=== PATIENT | male | born 1950 | race Caucasian/White ===

== ENCOUNTER 2020-06-14 16:24 | Emergency (ER) | payer OTHER, MEDICARE ==
[~2020-06-14] VITALS: Ht 172.7 cm; Wt 90.7 kg
[2020-06-14 16:32] VITALS: BP_SYST 162
[2020-06-14] MEDS ORDERED: NS 500 ML IV ONE (17:15)
[2020-06-14 17:56] LABS: BASOPHILS # (AUTO) 0.1 K/uL (0.0-0.2); EOSINOPHILS # (AUTO) 0.2 K/uL (0.0-0.4); EOSINOPHILS % (AUTO) 2.6 % (0.0-4.0); HEMATOCRIT 37.5 % (36-54); HEMOGLOBIN 12.8 g/dL (14.0-18.0); LYMPHOCYTES # (AUTO) 1.1 K/uL (1.0-5.5); LYMPHOCYTES % (AUTO) 18.4 % (20.5-51.5); MEAN CORPUSCULAR HEMOGLOBIN 28 pg (27-31); MEAN CORPUSCULAR HGB CONC 34 % (32-36); MEAN CORPUSCULAR VOLUME 84 fL (79.0-98.0); MONOCYTES # (AUTO) 0.5 K/uL (0.0-1.0); PLATELET COUNT (AUTO) 212 K/uL (130-430); RED BLOOD CELL COUNT(AUTO) 4.49 MIL/uL (4.2-6.2); WHITE BLOOD COUNT (AUTO) 5.9 K/uL (4.8-10.8)
[2020-06-14 18:00] LABS: ANION GAP 7 (5-15); CALCIUM 8.6 mg/dL (8.4-11.0); CHLORIDE 108 mmol/L (98-107); GLUCOSE 112 mg/dL (70-99); POTASSIUM 3.5 mmol/L (3.5-5.1); SODIUM SERUM 142 mmol/L (136-145); UREA NITROGEN, BLOOD 24 mg/dL (8-21)
[2020-06-14 18:04] LABS: ALANINE AMINOTRANSFERASE 27 U/L (12-78); ALBUMIN 3.6 g/dL (3.4-4.8); ASPARTATE AMINOTRANSFERASE 16 U/L (10-37); TOTAL BILIRUBIN 0.5 mg/dL (0.0-1.0)
[2020-06-14] MEDS ORDERED: VANCOMYCIN HCL 1,000 MG in NS 250 ML IV ONE (19:00)
[2020-06-14] MEDS ORDERED: VANCOMYCIN HCL 1000 MG/VIAL IV ONE (19:31)
[2020-06-14 21:30] VITALS: BP_SYST 142
== END 2020-06-14 21:30 | disposition home or self-care (01) ==
LOC: SED 16:24
DX: L03.116 Cellulitis of left lower limb (principal); E11.9 Type 2 diabetes mellitus without complications
CPT/HCPCS: 36415; 73630; 80053; 83605; 85025; 87040; 96361; 96365; 96366; 99284; J3370; J7030

== ENCOUNTER 2020-06-16 08:34 | Emergency (ER) | payer OTHER, MEDICARE ==
[~2020-06-16] VITALS: Ht 167.6 cm; Wt 96.2 kg
[2020-06-16 08:34] VITALS: BP_SYST 143
[2020-06-16 08:54] VITALS: BP_SYST 143
== END 2020-06-16 08:54 | disposition home or self-care (01) ==
LOC: SED 08:34
DX: Z48.00 Encounter for change or removal of nonsurgical wound dressing (principal); E11.9 Type 2 diabetes mellitus without complications
CPT/HCPCS: 99283

== ENCOUNTER 2021-11-30 20:18 | Emergency (ER) | payer OTHER, MEDICARE ==
[~2021-11-30] VITALS: Ht 172.7 cm; Wt 95.3 kg
[2021-11-30 20:27] VITALS: BP_SYST 126
[2021-11-30] MEDS: BACITRACIN 1 GM OINT TP ONE (21:33)
[2021-11-30] MEDS: DIPH-TET-PERTUS Vaccine 0.5 ML VIAL (ADACEL) I.M. ONE (21:36)
[2021-11-30 22:20] VITALS: BP_SYST 126
== END 2021-11-30 22:20 | disposition home or self-care (01) ==
LOC: SED 20:18
DX: S61.217A Laceration without foreign body of left little finger without damage to nail, initial encounter (principal); E11.9 Type 2 diabetes mellitus without complications; I10 Essential (primary) hypertension; Z90.89 Acquired absence of other organs; W18.39XA Other fall on same level, initial encounter; Y93.89 Activity, other specified; Y92.480 Sidewalk as the place of occurrence of the external cause; Y99.8 Other external cause status
CPT/HCPCS: 90715; 99283

== ENCOUNTER → 2023-11-04 | Emergency (ER) | payer OTHER, MEDICARE ==
[~2023-11-04] VITALS: Ht 172.7 cm; Wt 90.7 kg
[~2023-11-04] MED LIST: DOCU-144 PO; LIDO1ADH91 ID
[2023-11-04 14:22] VITALS: BP_SYST 175; PULSE 66; RESP 18; TEMP 96.6; O2SAT 97
== END | disposition home or self-care (01) ==
LOC: SED 12:46
DX: M54.50 Low back pain, unspecified (principal); K59.00 Constipation, unspecified; E11.9 Type 2 diabetes mellitus without complications; I10 Essential (primary) hypertension; Z79.899 Other long term (current) drug therapy
CPT/HCPCS: 99282

== ENCOUNTER 2023-11-14 09:33 | Inpatient (IN) | payer OTHER, MEDICARE ==
[~2023-11-14] VITALS: Ht 172.7 cm; Wt 90.7 kg
[2023-11-14 09:41] VITALS: BP_SYST 130; PULSE 68; RESP 16; TEMP 97.8; O2SAT 98
[2023-11-14 10:32] LABS: BASOPHILS % (AUTO) 0.3 % (0.0-2.0); EOSINOPHILS # (AUTO) 0.1 K/uL (0.0-0.4); EOSINOPHILS % (AUTO) 0.6 % (0.0-4.0); HEMATOCRIT 34.8 % (36-54); HEMOGLOBIN 11.7 g/dL (14.0-18.0); LYMPHOCYTES # (AUTO) 0.6 K/uL (1.0-5.5); LYMPHOCYTES % (AUTO) 4.9 % (20.5-51.5); MEAN CORPUSCULAR HEMOGLOBIN 29 pg (27-31); MEAN CORPUSCULAR HGB CONC 34 % (32-36); MEAN CORPUSCULAR VOLUME 85 fL (79.0-98.0); MONOCYTES # (AUTO) 0.9 K/uL (0.0-1.0); MONOCYTES % (AUTO) 7.7 % (1.7-9.3); NEUTROPHILS # (AUTO) 10.1 K/uL (1.8-7.7); NEUTROPHILS % (AUTO) 86.5 % (40.0-70.0); PLATELET COUNT (AUTO) 288 K/uL (130-430); RED BLOOD CELL COUNT(AUTO) 4.08 MIL/uL (4.2-6.2); RED CELL DISTRIBUTION WIDTH 14.4 % (9.0-15.0); WHITE BLOOD COUNT (AUTO) 11.7 K/uL (4.8-10.8)
[2023-11-14 10:36] LABS: ANION GAP 15 (5-15); CALCIUM 8.6 mg/dL (8.4-11.0); CARBON DIOXIDE 18 mmol/L (23-29); CHLORIDE 101 mmol/L (98-107); GLUCOSE 72 mg/dL (74-106); POTASSIUM 4.6 mmol/L (3.5-5.1); SODIUM SERUM 134 mmol/L (136-145); UREA NITROGEN, BLOOD 96 mg/dL (8-21)
[2023-11-14 10:48] LABS: CREATININE 8.71 mg/dL (0.55-1.30)
[2023-11-14] MEDS: NACL 0.9% 1,000 ML IV ONE (11:14)
[2023-11-14] MEDS: MORPHINE 2 MG/ML INJ. SYRINGE IVP ONE (11:22)
[2023-11-14] MEDS ORDERED: POTASSIUM CHLORIDE 20 MEQ TABLET.ER PO PRN (12:00)
[2023-11-14] MEDS ORDERED: MUPIROCIN 2% TOPICAL OINTMENT 22 GM NS PRN (12:00)
[2023-11-14] MEDS ORDERED: MORPHINE 2 MG/ML INJ. SYRINGE IVP PRN (12:00)
[2023-11-14] MEDS ORDERED: LORazepam 2 MG/ML VIAL IVP PRN (12:00)
[2023-11-14] MEDS ORDERED: ZOLPIDEM TARTRATE 5 MG TABLET PO PRN (12:00)
[2023-11-14] MEDS ORDERED: ONDANSETRON HCL 4 MG/2 ML VIAL IVP PRN (12:00)
[2023-11-14] MEDS ORDERED: MAGNESIUM SULFATE 50 ML IV PRN (12:00)
[2023-11-14] MEDS ORDERED: ACETAMINOPHEN 325 MG TABLET PO PRN ×2 (12:00→12:15)
[2023-11-14] MEDS ORDERED: GLIP5TAB13 PO (14:36)
[2023-11-14] MEDS ORDERED: LISI20TA30 PO (14:40)
[2023-11-14] MEDS ORDERED: METF-379 PO (14:40)
[2023-11-14] MEDS ORDERED: ASPI-1077 PO (14:40)
[2023-11-14] MEDS ORDERED: EMPA25TA PO (14:40)
[2023-11-14] MEDS ORDERED: VITD2000 PO (14:40)
[2023-11-14] MEDS ORDERED: COR25 PO (14:40)
[2023-11-14] MEDS ORDERED: CYAN500T9 PO (14:40)
[2023-11-14] MEDS ORDERED: EZET10TA30 PO (14:40)
[2023-11-14] MEDS ORDERED: ALFU10TA10 PO (14:40)
[2023-11-14] MEDS ORDERED: ROSU40TA PO (14:40)
[2023-11-14] MEDS ORDERED: ACETAMINOPHEN 500 MG TABLET PO PRN ×2 (15:00)
[2023-11-14 18:32] VITALS: BP_SYST 139; PULSE 98; RESP 18; TEMP 97.9
[2023-11-14 18:46] VITALS: O2SAT 98
[2023-11-14 20:45] VITALS: BP_SYST 110; PULSE 72; RESP 18; TEMP 99.1; O2SAT 96
[2023-11-14] MEDS: HEPARIN SODIUM,PORCINE 5,000 UNITS/ML VIAL SUBCUT SCH (21:00)
[2023-11-14] MEDS: MORPHINE 2 MG/ML INJ. SYRINGE IVP PRN (21:41)
[2023-11-14] MEDS: D5NS 1,000 ML IV SCH (21:42)
[2023-11-14 22:45] VITALS: O2SAT 96
[2023-11-15 00:30] VITALS: BP_SYST 100; PULSE 72; RESP 18; TEMP 98.2; O2SAT 94
[2023-11-15 03:19] VITALS: BP_SYST 109; PULSE 73; RESP 18; TEMP 98.4; O2SAT 93
[2023-11-15 05:44] LABS: BASOPHILS % (AUTO) 0.1 % (0.0-2.0); EOSINOPHILS % (AUTO) 0.3 % (0.0-4.0); HEMATOCRIT 34.2 % (36-54); HEMOGLOBIN 11.4 g/dL (14.0-18.0); LYMPHOCYTES # (AUTO) 0.5 K/uL (1.0-5.5); LYMPHOCYTES % (AUTO) 4.2 % (20.5-51.5); MEAN CORPUSCULAR HEMOGLOBIN 28 pg (27-31); MEAN CORPUSCULAR HGB CONC 33 % (32-36); MEAN CORPUSCULAR VOLUME 85 fL (79.0-98.0); MONOCYTES # (AUTO) 0.8 K/uL (0.0-1.0); MONOCYTES % (AUTO) 6.7 % (1.7-9.3); NEUTROPHILS # (AUTO) 10.2 K/uL (1.8-7.7); NEUTROPHILS % (AUTO) 88.7 % (40.0-70.0); PLATELET COUNT (AUTO) 327 K/uL (130-430); RED BLOOD CELL COUNT(AUTO) 4.01 MIL/uL (4.2-6.2); RED CELL DISTRIBUTION WIDTH 14.2 % (9.0-15.0); WHITE BLOOD COUNT (AUTO) 11.5 K/uL (4.8-10.8)
[2023-11-15 06:25] LABS: ANION GAP 15 (5-15); CALCIUM 8.3 mg/dL (8.4-11.0); CARBON DIOXIDE 16 mmol/L (23-29); CHLORIDE 102 mmol/L (98-107); GLUCOSE 57 mg/dL (74-106); SODIUM SERUM 133 mmol/L (136-145)
[2023-11-15] MEDS: DEXTROSE 50% JECT 50 ML DISP.SYRIN IVP PRN (06:25)
[2023-11-15] MEDS ORDERED: NS 1000 ML IV.SOLN IV ONE (06:32)
[2023-11-15] MEDS ORDERED: PROPOFOL 200MG/ 20ML VIAL (DIPRIVAN) IV ONE (06:32)
[2023-11-15] MEDS ORDERED: cefTRIAXone 1 GM VIAL ONE (06:32)
[2023-11-15] MEDS ORDERED: DEXAMETHASONE SOD PHOSPHATE 4 MG/ML VIAL ONE (06:32)
[2023-11-15] MEDS ORDERED: NS IRRIG SOLN 1000 ML IR ONE (06:32)
[2023-11-15] MEDS ORDERED: SEVOFLURANE 15 MIN GAS INH ONE (06:32)
[2023-11-15] MEDS ORDERED: ROCURONIUM BROMIDE 10 MG/ML (ZEMURON) ONE (06:32)
[2023-11-15 07:08] LABS: UREA NITROGEN, BLOOD 106 mg/dL (8-21)
[2023-11-15 07:09] LABS: CREATININE 10.09 mg/dL (0.55-1.30)
[2023-11-15] MEDS ORDERED: NALOXONE HCL 0.4 MG/ML AMP (NARCAN) IVP PRN (07:45)
[2023-11-15] MEDS ORDERED: hydrALAZINE HCL 20 MG/ML VIAL IV PRN (07:45)
[2023-11-15] MEDS ORDERED: HYDROmorphone 1 MG/ML INJ. CARTRIDGE IVP PRN ×2 (07:45)
[2023-11-15] MEDS ORDERED: ONDANSETRON HCL 4 MG/2 ML VIAL IVP PRN (07:45)
[2023-11-15] MEDS: cefTRIAXone 1 GM in D5W 50 ML IV SCH (09:00)
[2023-11-15 09:30] VITALS: BP_SYST 130; PULSE 74; RESP 18; TEMP 98.1; O2SAT 94
[2023-11-15 10:35] VITALS: O2SAT 94
[2023-11-15] MEDS: INSULIN LISPRO SLIDING SCALE 100 UNITS/ML, 3 ML VIAL (humaLOG) SUBCUT PRN (12:34)
[2023-11-15 14:54] VITALS: BP_SYST 126; PULSE 84; RESP 22; TEMP 97.2; O2SAT 96
[2023-11-15 20:10] VITALS: BP_SYST 125; PULSE 80; RESP 18; TEMP 97.3; O2SAT 95
[2023-11-16] VITALS (7 sets, daily range): BP systolic 136–152; PULSE 76–84; RESP 17–20; TEMP 96.5–98.4; O2SAT 95–98
[2023-11-16] MEDS: SODIUM BICARBONATE 8.4% JECT 50 MEQ/50 ML SYRINGE ONE (00:47)
[2023-11-16] MEDS: SODIUM BICARBONATE 8.4% JECT 50 MEQ in 0.45% NACL 1,000 ML IV SCH (00:47)
[2023-11-16 06:48] LABS: BASOPHILS % (AUTO) 0.1 % (0.0-2.0); HEMATOCRIT 33.7 % (36-54); HEMOGLOBIN 11.3 g/dL (14.0-18.0); LYMPHOCYTES # (AUTO) 0.3 K/uL (1.0-5.5); LYMPHOCYTES % (AUTO) 1.9 % (20.5-51.5); MEAN CORPUSCULAR HEMOGLOBIN 28 pg (27-31); MEAN CORPUSCULAR HGB CONC 34 % (32-36); MEAN CORPUSCULAR VOLUME 84 fL (79.0-98.0); MONOCYTES # (AUTO) 0.5 K/uL (0.0-1.0); MONOCYTES % (AUTO) 3.3 % (1.7-9.3); NEUTROPHILS # (AUTO) 15.1 K/uL (1.8-7.7); NEUTROPHILS % (AUTO) 94.7 % (40.0-70.0); PLATELET COUNT (AUTO) 346 K/uL (130-430); RED CELL DISTRIBUTION WIDTH 14.3 % (9.0-15.0)
[2023-11-16 07:29] LABS: ANION GAP 18 (5-15); CALCIUM 8.3 mg/dL (8.4-11.0); CARBON DIOXIDE 17 mmol/L (23-29); CHLORIDE 103 mmol/L (98-107); GLUCOSE 163 mg/dL (74-106); POTASSIUM 5.3 mmol/L (3.5-5.1); SODIUM SERUM 138 mmol/L (136-145)
[2023-11-16 07:40] LABS: UREA NITROGEN, BLOOD 101 mg/dL (8-21)
[2023-11-16 07:41] LABS: CREATININE 9.39 mg/dL (0.55-1.30)
[2023-11-16 07:53] LABS: WHITE BLOOD COUNT (AUTO) 15.9 K/uL (4.8-10.8)
[2023-11-16] MEDS: metroNIDAZOLE 250 mg/NS 50 ML IV SCH (14:15)
[2023-11-17] VITALS (8 sets, daily range): BP systolic 126–141; PULSE 76–98; RESP 16–20; TEMP 97.1–98.5; O2SAT 95–98
[2023-11-17 06:12] LABS: BASOPHILS % (AUTO) 0.2 % (0.0-2.0); EOSINOPHILS # (AUTO) 0.2 K/uL (0.0-0.4); EOSINOPHILS % (AUTO) 1.7 % (0.0-4.0); HEMOGLOBIN 11.1 g/dL (14.0-18.0); LYMPHOCYTES # (AUTO) 0.7 K/uL (1.0-5.5); LYMPHOCYTES % (AUTO) 5.7 % (20.5-51.5); MEAN CORPUSCULAR HEMOGLOBIN 29 pg (27-31); MEAN CORPUSCULAR HGB CONC 34 % (32-36); MEAN CORPUSCULAR VOLUME 85 fL (79.0-98.0); MONOCYTES # (AUTO) 0.6 K/uL (0.0-1.0); MONOCYTES % (AUTO) 4.8 % (1.7-9.3); NEUTROPHILS # (AUTO) 10.5 K/uL (1.8-7.7); NEUTROPHILS % (AUTO) 87.6 % (40.0-70.0); PLATELET COUNT (AUTO) 362 K/uL (130-430); RED CELL DISTRIBUTION WIDTH 14.3 % (9.0-15.0); WHITE BLOOD COUNT (AUTO) 11.9 K/uL (4.8-10.8)
[2023-11-17 06:45] LABS: ANION GAP 14 (5-15); CALCIUM 8.1 mg/dL (8.4-11.0); CARBON DIOXIDE 20 mmol/L (23-29); CHLORIDE 106 mmol/L (98-107); CREATININE 6.49 mg/dL (0.55-1.30); GLUCOSE 104 mg/dL (74-106); POTASSIUM 4.4 mmol/L (3.5-5.1); SODIUM SERUM 140 mmol/L (136-145); UREA NITROGEN, BLOOD 87 mg/dL (8-21)
[2023-11-18] VITALS: BP_SYST 128; PULSE 79; RESP 18; TEMP 98.6; O2SAT 97
[2023-11-18 06:06] LABS: BASOPHILS % (AUTO) 0.3 % (0.0-2.0); EOSINOPHILS # (AUTO) 0.4 K/uL (0.0-0.4); EOSINOPHILS % (AUTO) 3.6 % (0.0-4.0); HEMOGLOBIN 11.7 g/dL (14.0-18.0); LYMPHOCYTES # (AUTO) 0.8 K/uL (1.0-5.5); LYMPHOCYTES % (AUTO) 7.7 % (20.5-51.5); MEAN CORPUSCULAR HEMOGLOBIN 29 pg (27-31); MEAN CORPUSCULAR HGB CONC 34 % (32-36); MEAN CORPUSCULAR VOLUME 84 fL (79.0-98.0); MONOCYTES # (AUTO) 0.5 K/uL (0.0-1.0); MONOCYTES % (AUTO) 5.3 % (1.7-9.3); NEUTROPHILS # (AUTO) 8.6 K/uL (1.8-7.7); NEUTROPHILS % (AUTO) 83.1 % (40.0-70.0); PLATELET COUNT (AUTO) 398 K/uL (130-430); RED BLOOD CELL COUNT(AUTO) 4.04 MIL/uL (4.2-6.2); RED CELL DISTRIBUTION WIDTH 14.5 % (9.0-15.0); WHITE BLOOD COUNT (AUTO) 10.3 K/uL (4.8-10.8)
[2023-11-18 06:32] LABS: ANION GAP 12 (5-15); CALCIUM 8.4 mg/dL (8.4-11.0); CARBON DIOXIDE 23 mmol/L (23-29); CHLORIDE 107 mmol/L (98-107); CREATININE 4.17 mg/dL (0.55-1.30); GLUCOSE 160 mg/dL (74-106); SODIUM SERUM 142 mmol/L (136-145); UREA NITROGEN, BLOOD 72 mg/dL (8-21)
[2023-11-18 08:00] VITALS: BP_SYST 153; PULSE 85; RESP 18; TEMP 98.1; O2SAT 96
[2023-11-18 11:37] VITALS: BP_SYST 140; PULSE 92; RESP 17; TEMP 97.8; O2SAT 96
[2023-11-18 15:37] VITALS: BP_SYST 148; PULSE 84; RESP 18; TEMP 98.5; O2SAT 97
[2023-11-18 19:47] VITALS: BP_SYST 134; PULSE 86; RESP 20; TEMP 97.6; O2SAT 98
[2023-11-18 20:30] VITALS: O2SAT 98
[2023-11-18] MEDS: DOCUSATE SODIUM 100 MG CAPSULE PO PRN (23:31)
[2023-11-19] VITALS (7 sets, daily range): BP systolic 113–145; PULSE 74–90; RESP 16–20; TEMP 97.3–98.8; O2SAT 93–97
[2023-11-19 05:32] LABS: BASOPHILS # (AUTO) 0.1 K/uL (0.0-0.2); BASOPHILS % (AUTO) 0.7 % (0.0-2.0); EOSINOPHILS # (AUTO) 0.3 K/uL (0.0-0.4); EOSINOPHILS % (AUTO) 3.5 % (0.0-4.0); HEMATOCRIT 32.9 % (36-54); HEMOGLOBIN 11.2 g/dL (14.0-18.0); LYMPHOCYTES # (AUTO) 0.9 K/uL (1.0-5.5); LYMPHOCYTES % (AUTO) 10.4 % (20.5-51.5); MEAN CORPUSCULAR HEMOGLOBIN 29 pg (27-31); MEAN CORPUSCULAR HGB CONC 34 % (32-36); MEAN CORPUSCULAR VOLUME 85 fL (79.0-98.0); MONOCYTES # (AUTO) 0.5 K/uL (0.0-1.0); NEUTROPHILS # (AUTO) 6.9 K/uL (1.8-7.7); NEUTROPHILS % (AUTO) 79.4 % (40.0-70.0); PLATELET COUNT (AUTO) 387 K/uL (130-430); RED BLOOD CELL COUNT(AUTO) 3.89 MIL/uL (4.2-6.2); RED CELL DISTRIBUTION WIDTH 14.4 % (9.0-15.0); WHITE BLOOD COUNT (AUTO) 8.7 K/uL (4.8-10.8)
[2023-11-19 05:53] LABS: ANION GAP 11 (5-15); CARBON DIOXIDE 25 mmol/L (23-29); CHLORIDE 107 mmol/L (98-107); CREATININE 2.67 mg/dL (0.55-1.30); GLUCOSE 142 mg/dL (74-106); POTASSIUM 3.7 mmol/L (3.5-5.1); SODIUM SERUM 143 mmol/L (136-145); UREA NITROGEN, BLOOD 54 mg/dL (8-21)
[2023-11-19] MEDS ORDERED: ROCPM1 IV (17:25)
== END 2023-11-19 16:21 | DRG 853 ==
LOC: SED 09:33 → STU 12:00 → SMU 17:13 → STU 18:04 → SMU 11-17 17:50
PROVIDERS: ADMIT General Practice; ATTEND General Practice
PROC: 0TF78ZZ Fragmentation in Left Ureter, Via Natural or Artificial Opening Endoscopic (ICD-10-PCS; 2023-11-15)
PROC: 0TF68ZZ Fragmentation in Right Ureter, Via Natural or Artificial Opening Endoscopic (ICD-10-PCS; 2023-11-15)
PROC: BT141ZZ Fluoroscopy of Kidneys, Ureters and Bladder using Low Osmolar Contrast (ICD-10-PCS; 2023-11-15)
PROC: 0T788DZ Dilation of Bilateral Ureters with Intraluminal Device, Via Natural or Artificial Opening Endoscopic (ICD-10-PCS; principal; 2023-11-15 07:10)
DX: A41.9 Sepsis, unspecified organism (principal); N17.0 Acute kidney failure with tubular necrosis; N13.2 Hydronephrosis with renal and ureteral calculous obstruction; E87.1 Hypo-osmolality and hyponatremia; K40.90 Unilateral inguinal hernia, without obstruction or gangrene, not specified as recurrent; E83.51 Hypocalcemia; E78.5 Hyperlipidemia, unspecified; D63.8 Anemia in other chronic diseases classified elsewhere; E11.22 Type 2 diabetes mellitus with diabetic chronic kidney disease; E11.65 Type 2 diabetes mellitus with hyperglycemia; E83.41 Hypermagnesemia; N18.30 Chronic kidney disease, stage 3 unspecified; I12.9 Hypertensive chronic kidney disease with stage 1 through stage 4 chronic kidney disease, or unspecified chronic kidney disease; I25.10 Atherosclerotic heart disease of native coronary artery without angina pectoris; Z79.82 Long term (current) use of aspirin; Z79.899 Other long term (current) drug therapy
CPT/HCPCS: 36415; 71045; 76000; 80048; 82948; 83037; 83735; 85025; 85730; 87081; 93005; 96361; 96374; 97110-GP; 97112-GP; 97116-GP; 97530-GP; 99291; C1769; C2625; G0378; J0696; J1100; J1644; J2270; J2704; J3490; J7030; J7060